=== PATIENT | female | born 1985 | race American Indian/Alaskan Native ===

== ENCOUNTER 2019-05-31 01:09 | Emergency (ER) | payer OTHER ==
[2019-05-31 01:16] VITALS: BP 118/76
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
[2019-05-31] MEDS ORDERED: IBUPROFEN PO ONE (03:11)
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
== END 2019-05-31 03:23 | disposition home or self-care (01) ==
LOC: ED 01:09
DX: R07.89 Other chest pain (principal); F17.200 Nicotine dependence, unspecified, uncomplicated; Z79.1 Long term (current) use of non-steroidal anti-inflammatories (NSAID)
CPT/HCPCS: 99283